=== PATIENT | male | born 1995 | race Caucasian/White ===

== ENCOUNTER 2018-09-13 10:43 | Emergency (ER) | payer OTHER ==
[2018-09-13] MEDS ORDERED: oxyCODONE/Acetamin 5/325 MG* TAB PO ONE (11:26)
[2018-09-13] MEDS ORDERED: Bupivacaine 0.5% W/EPI SDV* 30 ML VIAL ONE (14:09)
[2018-09-13] MEDS ORDERED: Bupivacaine 0.5%* 50 ML VIAL INJ ONE (14:12)
[2018-09-13] MEDS ORDERED: Bupivacaine 0.5% PF 10 ML VIAL INJ ONE (15:00)
[2018-09-13] MEDS ORDERED: Cephalexin CAP* 500 MG PO ONE (16:45)
--- NOTE | 2018-09-13 16:51 | ED ---
Upper Extremity Pain - HPI Summary HPI Summary: Lt thumb lac prior to arrival. 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 Denies numbness, tingling,weakness but has significant pain/throbbing. Imms are UTD. Has not had anything for pain prior to arrival and requesting something. - History of Current Complaint Chief Complaint: EDLacSutureRecheck Stated Complaint: CUT LT THUMB Time Seen by Provider: 09/13/18 11:13 Hx Obtained From: Patient - Allergies/Home Medications Allergies/Adverse Reactions: Allergies Allergy/AdvReac Type Severity Reaction Status Date / Time gabapentin Allergy Rash Verified 09/13/18 10:50 PMH/Surg Hx/FS Hx/Imm Hx Previously Healthy: Yes Endocrine/Hematology History: Denies: Hx Anticoagulant Therapy, Hx Blood Disorders, Hx Diabetes, Hx Anemia , Autoimmune Disease - Immunization History Date of Tetanus Vaccine: 2015 Immunizations Up to Date: Yes Infectious Disease History: No Infectious Disease History: Denies: Hx of Known/Suspected MRSA, Traveled Outside the [place] in Last 30 Days - Family History Known Family History: Positive: None - Social History 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 [employer] Alcohol Use: Occasionally Substance Use Type: Reports: Marijuana Hx Tobacco Use: No Smoking Status (MU): Never Smoked Tobacco Review of Systems Constitutional: Negative Positive: no symptoms reported Musculoskeletal: Negative Skin: Other - laceration Neurological: Negative Psychological: Normal All Other Systems Reviewed And Are Negative: Yes Physical Exam Triage Information Reviewed: Yes Vital Signs On Initial Exam: Initial Vitals Temp Pulse Resp BP Pulse Ox 98.3 F 73 16 168/108 98 09/13/18 10:44 09/13/18 10:44 09/13/18 10:44 09/13/18 10:44 09/13/18 10:44 Vital Signs Reviewed: Yes Appearance: Positive: Well-Appearing, Well-Nourished, Pain Distress Skin: Positive: Warm, Skin Color Reflects Adequate Perfusion, Dry - lac through distal thumb nail (medial to lateral) without complete excision; lac through distal tip/pad of thumb as well but not all the way through - oozing blood -no nerves/tendons or bones observed - clean Head/Face: Positive: Normal Head/Face Inspection Eyes: Positive: EOMI ENT: Positive: Hearing grossly normal Respiratory/Lung Sounds: Positive: Breath Sounds Present Cardiovascular: Positive: Pulses are Symmetrical in both Upper and Lower Extremities Musculoskeletal: Positive: Normal, Strength/ROM Intact Neurological: Positive: Normal, Sensory/Motor Intact, Alert, Oriented to Person Place, Time, CN Intact II-III Psychiatric: Positive: Normal Procedures - Laceration/Wound Repair 1 Location: upper extremity - Lt distal thumb Description: Linear Anesthesia: Digital, .5%, 1.0%, [place], Marcaine Length, Depth and Shape: 1.5cm across - tip flap through tissue - no bone observed; active bleeding (oozing, no pulsing); distal injured nail removed Betadine Prep?: No - pt allergy to shellfish Irrigated w/ Saline (ccs): 500 Laceration/Wound Explored: clean Closure: Single Layer Suture Type: Chromic, Other - ethilon Number of Sutures: 10 - 7 ethilon (dermis), 3 chromic (nail bed) Layer Closure?: No Sterile Dressing Applied?: Yes - xeroform + gauze + coban - hemodynamically stable and prefused - pt cici wel Diagnostics - Vital Signs Vital Signs Temp Pulse Resp BP Pulse Ox 09/13/18 11:43 18 09/13/18 10:44 98.3 F 73 16 168/108 98 - Laboratory Lab Statement: Any lab studies that have been ordered have been reviewed, and results considered in the medical decision making process. Re-Evaluation - Re-Evaluation First Eval Change: Improved Course/Dx - Course Course Of Treatment: XR: no acute findings - Diagnoses Provider Diagnoses: Laceration of left thumb with damage to nail Discharge - Sign-Out/Discharge Documenting (check all that apply): Patient Departure - Discharge Plan Condition: Stable Disposition: HOME Prescriptions: Cephalexin CAP* [Keflex CAP*] 500 mg PO BID #10 cap HYDROcodone/ACETAMIN 5-325 MG* [[place] 5-325 TAB*] 1 tab PO Q6H PRN #15 tab MDD 4 PRN Reason: Pain Ibuprofen TAB* [Motrin TAB* 600 MG] 600 mg PO Q6H PRN #20 tab PRN Reason: Pain Patient Education Materials: Care For Your Stitches (ED), Finger Laceration (ED ) Forms: *Work Release Referrals: Simone RICHARDS,Hoang Murphy [Medical Doctor] - Additional Instructions: Keep Dressing clean and dry and in place for the next 48 hours. Follow-up with hand specialist on Tuesday to change dressing, wound check. Call tomorrow morning to schedule an appointment. After initial dressing removal, you may gently wash wound with soap and water, rinse well and pat dry with clean cloth. Reapply triple antibiotic ointment and clean gauze dressing. Continue this daily until sutures are removed. If you receive different wound care instructions from your hand specialist, you may defer to his/her plan of care. Complete antibiotics as directed. Take pain medications as directed. You may also rest, ice and elevate thumb for pain/swelling. * If you develop redness, swelling, streaking, purulent drainage, fevers or chills, seek medical attention sooner or return to the emergency department. - Billing Disposition and Condition Condition: STABLE Disposition: Home
[2018-09-13 17:17] VITALS: BP 150/81
== END 2018-09-13 17:16 | disposition home or self-care (01) ==
LOC: ED 10:43
DX: S61.112A Laceration without foreign body of left thumb with damage to nail, initial encounter (principal); W26.0XXA Contact with knife, initial encounter; Y92.9 Unspecified place or not applicable
CPT/HCPCS: 11760; 96372; 99282; A9270-GY